=== PATIENT | female | born 1985 | race Caucasian/White ===

== ENCOUNTER 2017-09-20 09:30 | Emergency (ER) | payer SELFPAY ==
[~2017-09-20] VITALS: Ht 162.6 cm; Wt 73.0 kg
[2017-09-20] MEDS ORDERED: KETOROLAC TROMETHAMINE 30 MG/ML VIAL IV ONE (10:00)
[2017-09-20] MEDS ORDERED: SODIUM CHLORIDE 0.9% 1000ML 1,000 ML ONE (10:00)
[2017-09-20 12:02] VITALS: BP 139/85
[2017-09-20] MEDS ORDERED: SIMETHICONE80 MG PO (12:14)
[2017-09-20] MEDS ORDERED: TESSALON PERLE100 MG PO (12:14)
== END 2017-09-20 12:26 | disposition home or self-care (01) ==
LOC: FSED 09:30
DX: R42 Dizziness and giddiness (principal); R10.32 Left lower quadrant pain; R10.12 Left upper quadrant pain; B34.9 Viral infection, unspecified; M41.9 Scoliosis, unspecified
CPT/HCPCS: 70450; 71046; 80048; 80076; 81003; 81025; 85025; 99284; J1885; J7030; 93005